=== PATIENT | female | born 1990 | race Caucasian/White ===

== ENCOUNTER 2017-10-15 07:39 | Inpatient (IN) ==
[2017-10-15] MEDS ORDERED: 0.9 % Sodium Chloride 1,000 ML IVC ONE (07:52)
--- NOTE | 2017-10-15 07:56 | Emergency Department Note ---
Disposition Clinical Impression: Diabetic keto-acidosis Qualifiers: Diabetes mellitus type: type 1 Diabetes mellitus complication detail: without coma Qualified Code(s): E10.10 - Type 1 diabetes mellitus with ketoacidosis without coma Disposition: Admitted As Inpatient Condition: Good Referrals: Candice Lambert DO [Primary Care Provider] - Forms: ED Satisfaction Letter, Work/School Release Time of Disposition: 09:24 General Adult HPI - General Chief complaint: ED General Medical Stated complaint: "First stage of Ketoacidosis" Time Seen by Provider: 10/15/17 07:45 Source: patient Mode of arrival: ambulatory Limitations: no limitations Nursing Notes Reviewed: Yes Vital Signs Reviewed: Yes - History of Present Illness HPI Narrative: Patient concern about hyperglycemia. She ran out of her Lantus several days ago. She states she has a prescription at the pharmacy which she has yet to refill. She complains of dry skin increased thirst, polyuria, fatigue. She has been in diabetic ketoacidosis twice previously and that is her current concern. She does note bilateral low back pain without urinary symptoms. She denies febrile symptoms Onset (ago): day(s) Pain Severity: moderate Pain Scale: 4 Consistency: constant Improves with: nothing Worsens with: nothing Associated symptoms: Reports: other Treatments Prior to Arrival: none - Related Data Previous Rx's Medication Instructions Recorded Guaifenesin [Mucinex] 1,200 mg PO BID #20 tab.er.12h 06/06/17 PredniSONE [Deltasone] 20 mg PO DAILY 4 Days tablet 06/06/17 Benzonatate [Tessalon] 100 mg PO TID PRN #15 capsule 07/15/17 Magic Mouthwash [Magic Mouthwash 5 ml PO QID PRN #240 ml 07/15/17 BLM] Azithromycin [Azithromycin 6-Tab 250 mg PO PER PKG DI #6 tab 07/24/17 Pack] Ketorolac [Toradol] 10 mg PO Q6HR PRN #20 tablet 07/24/17 predniSONE [Prednisone] 50 mg PO DAILY #5 tablet 07/24/17 Allergies Allergy/AdvReac Type Severity Reaction Status Date / Time No Known Allergies Allergy Verified 07/24/17 08:44 All systems ED: reviewed and negative except as stated. Constitutional: Reports: weakness Eyes: Reports: as per HPI ENT ED: Reports: as per HPI Cardiovascular: Reports: as per HPI Respiratory: Reports: as per HPI Gastrointestinal: Reports: as per HPI Genitourinary: Reports: as per HPI Musculoskeletal: Reports: back pain Integumentary: Reports: other (Dry skin) Neurological: Reports: as per HPI Psychiatric: Reports: as per HPI Endocrine: Reports: fatigue, polydipsia, polyuria Hematological/Lymphatic: Reports: as per HPI Allergic/Immunologic: Reports: as per HPI Past Medical History - Past Medical History Source: patient Medical history: Reports: asthma, diabetes, thyroid disease Psychiatric history: Reports: anxiety, depression, PTSD BILLING MANAGER history: Reports: polycystic ovary syndrome - Social History Smoking Status: Never smoker Smokeless Tobacco Status: No Alcohol use: Reports: none Drug use: Reports: none Physical Exam - General Limitations: no limitations General appearance: alert, in no apparent distress - Head Head exam: atraumatic - Eye Eye exam: Present: normal appearance - ENT ENT exam: normal exam - Neck Neck exam: Present: normal inspection, full ROM - Chest Chest inspection: Present: normal inspection, symmetric chest wall rise - Respiratory Respiratory exam: Present: normal lung sounds bilaterally - Cardiovascular Cardiovascular exam: Present: regular rate, normal rhythm, normal heart sounds - Rectal Exam Rectal exam: Present: deferred - Extremities Exam Extremities exam: Present: normal inspection - Neurological Exam Neurological exam: Present: alert, oriented X3, CN II-XII intact - Psychiatric Psychiatric exam: Present: normal affect, normal mood - Skin Skin exam: Present: warm, dry, intact Course Course Narrative: Patient presents with concerns for hyperglycemia due to being without her Lantus over the past several days. Workup to evaluate for diabetic ketoacidosis initiated. Initial bedside Accu-Chek greater than 400. IV fluids initiated - Reevaluation(s) Reevaluation #1: Patient needs criteria for DKA. IV insulin therapy initiated. I will request admission to the medicine service Vital Signs Temperature 98.6 F 10/15/17 07:40 Pulse Rate 91 10/15/17 07:40 Respiratory Rate 10/15/17 07:40 Blood Pressure 152/73 10/15/17 07:40 O2 Sat by Pulse Oximetry 96 10/15/17 07:40 Temperature 98.6 F 10/15/17 07:44 Pulse Rate 91 10/15/17 07:44 Respiratory Rate 22 10/15/17 07:44 Blood Pressure 152/73 10/15/17 07:44 O2 Sat by Pulse Oximetry 96 10/15/17 07:44 Oxygen Delivery Oxygen Delivery Room Air Medical Decision Making - Lab Data Lab results reviewed: Yes I reviewed the patient's lab results. Result diagrams: 10/15/17 08:05 10/15/17 08:48 Lab Results 10/15/17 10/15/17 10/15/17 Range/Units 07:56 07:56 08:05 WBC 12.1 H (4.3-11.1) K/mcL RBC 4.54 (3.82-4.97) M/mcL Hgb 14.5 (11.5-15.4) g/dL Hct 42.5 (35.3-44.9) % MCV 93.6 (83.0-100.0) fL MCH 31.9 (28.0-33.3) pg MCHC 34.1 (31.6-35.5) g/dL RDW 12.1 (11.5-14.5) % Plt Count 243 (140-400) K/mcL MPV 10.2 (9.4-12.4) fL Immature Gran % 0.8 (0-4) % Seg Neutrophils % 76.8 % Lymphocytes % 16.4 % Monocytes % 4.7 % Eosinophils % 0.7 % Basophils % 0.6 % Neutrophils # 9.3 H (1.6-8.9) K/mcL Lymphocytes # 2.0 (0.6-4.6) K/mcL Monocytes # 0.6 (0.0-1.3) K/mcL Eosinophils # 0.1 (0.0-0.6) K/mcL Basophils # 0.1 (0.0-0.2) K/mcL VBG pH (7.32-7.42) pH Units VBG pCO2 (41-51) mmHg VBG pO2 (25-50) mmHg VBG HCO3 (21-27) mEq/L Sodium (136-145) mEq/L Potassium (3.5-5.1) mEq/L Chloride (98-107) mEq/L Carbon Dioxide (23-29) mEq/L BUN (6-20) mg/dL Creatinine (0.60-1.20) mg/dL Est GFR ( Amer) (> 60) Est GFR (Non-Af Amer) (> 60) BUN/Creatinine Ratio (6-26) Glucose (70-105) mg/dL Calculated Osmolality (280-300) Calcium (8.6-10.3) mg/dL Total Bilirubin (0.3-1.0) mg/dL AST (13-39) Units/L ALT (7-52) Units/L Alkaline Phosphatase (34-104) Units/L Serum Total Protein (6.4-8.9) g/dL Albumin (3.5-5.7) g/dL Globulin (2.4-3.5) g/dL Albumin/Globulin Ratio (1.1-2.2) Beta-Hydroxybutyric Acd (0.02-0.27) mmol/L Urine Color Yellow (Yellow) Urine Clarity Clear (Clear) Urine pH 6.0 (5.0-8.0) pH Units Ur Specific [place] 1.027 H (1.010-1.025) Urine Protein Trace (Neg-Trace) mg/dL Urine Glucose (UA) >=1000 H (Normal) mg/dL Urine Ketones 80 H (Negative) mg/dL Urine Blood Negative (Negative) Urine Nitrite Negative (Negative) Urine Bilirubin Negative (Negative) Urine Urobilinogen Normal (Normal) mg/dL Ur Leukocyte Esterase Negative (Negative) Urine Microscopic RBC 0-3 (0-3) per hpf Urine Microscopic WBC 0-3 (0-3) per hpf Ur Squamous Epith Cells Many H (None-Few) per lpf Urine Bacteria None Seen (None-Few) per hpf Hyaline Casts None Seen (None-Few) per lpf Urine Test Negative (Negative) Specimen Rejected 10/15/17 10/15/17 10/15/17 Range/Units 08:05 08:05 08:21 WBC (4.3-11.1) K/mcL RBC (3.82-4.97) M/mcL Hgb (11.5-15.4) g/dL Hct (35.3-44.9) % MCV (83.0-100.0) fL MCH (28.0-33.3) pg MCHC (31.6-35.5) g/dL RDW (11.5-14.5) % Plt Count (140-400) K/mcL MPV (9.4-12.4) fL Immature Gran % (0-4) % Seg Neutrophils % % Lymphocytes % % Monocytes % % Eosinophils % % Basophils % % Neutrophils # (1.6-8.9) K/mcL Lymphocytes # (0.6-4.6) K/mcL Monocytes # (0.0-1.3) K/mcL Eosinophils # (0.0-0.6) K/mcL Basophils # (0.0-0.2) K/mcL VBG pH 7.29 L (7.32-7.42) pH Units VBG pCO2 36 L (41-51) mmHg VBG pO2 76 H (25-50) mmHg VBG HCO3 17 L (21-27) mEq/L Sodium (136-145) mEq/L Potassium (3.5-5.1) mEq/L Chloride (98-107) mEq/L Carbon Dioxide (23-29) mEq/L BUN (6-20) mg/dL Creatinine (0.60-1.20) mg/dL Est GFR ( Amer) (> 60) Est GFR (Non-Af Amer) (> 60) BUN/Creatinine Ratio (6-26) Glucose (70-105) mg/dL Calculated Osmolality (280-300) Calcium (8.6-10.3) mg/dL Total Bilirubin (0.3-1.0) mg/dL AST (13-39) Units/L ALT (7-52) Units/L Alkaline Phosphatase (34-104) Units/L Serum Total Protein (6.4-8.9) g/dL Albumin (3.5-5.7) g/dL Globulin (2.4-3.5) g/dL Albumin/Globulin Ratio (1.1-2.2) Beta-Hydroxybutyric Acd > 2.00 H (0.02-0.27) mmol/L Urine Color (Yellow) Urine Clarity (Clear) Urine pH (5.0-8.0) pH Units Ur Specific [place] (1.010-1.025) Urine Protein (Neg-Trace) mg/dL Urine Glucose (UA) (Normal) mg/dL Urine Ketones (Negative) mg/dL Urine Blood (Negative) Urine Nitrite (Negative) Urine Bilirubin (Negative) Urine Urobilinogen (Normal) mg/dL Ur Leukocyte Esterase (Negative) Urine Microscopic RBC (0-3) per hpf Urine Microscopic WBC (0-3) per hpf Ur Squamous Epith Cells (None-Few) per lpf Urine Bacteria (None-Few) per hpf Hyaline Casts (None-Few) per lpf Urine Test (Negative) Specimen Rejected Hemolyzed 10/15/17 Range/Units 08:48 WBC (4.3-11.1) K/mcL RBC (3.82-4.97) M/mcL Hgb (11.5-15.4) g/dL Hct (35.3-44.9) % MCV (83.0-100.0) fL MCH (28.0-33.3) pg MCHC (31.6-35.5) g/dL RDW (11.5-14.5) % Plt Count (140-400) K/mcL MPV (9.4-12.4) fL Immature Gran % (0-4) % Seg Neutrophils % % Lymphocytes % % Monocytes % % Eosinophils % % Basophils % % Neutrophils # (1.6-8.9) K/mcL Lymphocytes # (0.6-4.6) K/mcL Monocytes # (0.0-1.3) K/mcL Eosinophils # (0.0-0.6) K/mcL Basophils # (0.0-0.2) K/mcL VBG pH (7.32-7.42) pH Units VBG pCO2 (41-51) mmHg VBG pO2 (25-50) mmHg VBG HCO3 (21-27) mEq/L Sodium 135 L (136-145) mEq/L Potassium 5.0 (3.5-5.1) mEq/L Chloride 105 (98-107) mEq/L Carbon Dioxide 15 L (23-29) mEq/L BUN 19 (6-20) mg/dL Creatinine 0.78 (0.60-1.20) mg/dL Est GFR ( Amer) > 60 (> 60) Est GFR (Non-Af Amer) > 60 (> 60) BUN/Creatinine Ratio 24 (6-26) Glucose 508 H* (70-105) mg/dL Calculated Osmolality 305 H (280-300) Calcium 8.8 (8.6-10.3) mg/dL Total Bilirubin 0.4 (0.3-1.0) mg/dL AST 14 (13-39) Units/L ALT 21 (7-52) Units/L Alkaline Phosphatase 81 (34-104) Units/L Serum Total Protein 6.5 (6.4-8.9) g/dL Albumin 3.6 (3.5-5.7) g/dL Globulin 2.9 (2.4-3.5) g/dL Albumin/Globulin Ratio 1.2 (1.1-2.2) Beta-Hydroxybutyric Acd (0.02-0.27) mmol/L Urine Color (Yellow) Urine Clarity (Clear) Urine pH (5.0-8.0) pH Units Ur Specific [place] (1.010-1.025) Urine Protein (Neg-Trace) mg/dL Urine Glucose (UA) (Normal) mg/dL Urine Ketones (Negative) mg/dL Urine Blood (Negative) Urine Nitrite (Negative) Urine Bilirubin (Negative) Urine Urobilinogen (Normal) mg/dL Ur Leukocyte Esterase (Negative) Urine Microscopic RBC (0-3) per hpf Urine Microscopic WBC (0-3) per hpf Ur Squamous Epith Cells (None-Few) per lpf Urine Bacteria (None-Few) per hpf Hyaline Casts (None-Few) per lpf Urine Test (Negative) Specimen Rejected Critical Care Time Critical Care Time: Yes Total Critical Care Time: 30 Attestation: The high probability of a clinically significant, sudden or life threatening deterioration of the [] system(s) required my full and direct attention, intervention and personal management. The aggregate critical care time was [] minutes. This time is in addition to time spent performing reported procedures but includes the following: [] Data Review and interpretation [] Patient assessment and monitoring of vital signs [] Documentation [] Medication orders and management
[2017-10-15 08:24] LABS: VBG HCO3 17 mEq/L (21-27); VBG PCO2 36 mmHg (41-51); VBG PH 7.29 pH Units (7.32-7.42); VBG PO2 76 mmHg (25-50)
[2017-10-15 08:25] LABS: Bilirubin,Urine Negative (Negative); Blood,Urine Negative (Negative); Clarity,Urine Clear (Clear); Color,Urine Yellow (Yellow); Glucose,Urine (UA) >=1000 mg/dL (Normal); Ketones,Urine 80 mg/dL (Negative); Leukocyte Esterase,Urine Negative (Negative); Nitrite,Urine Negative (Negative); Protein,Urine Trace mg/dL (Neg-Trace); Specific Gravity,Urine 1.027 (1.010-1.025); Urobilinogen,Urine Normal (Normal)
[2017-10-15 08:28] LABS: Bacteria,Urine None Seen per hpf (None-Few); Hyaline Casts,Urine None Seen per lpf (None-Few); RBC,Urine 0-3 per hpf (0-3); Squamous Epithelial Cell,Urine Many per lpf (None-Few); WBC,Urine 0-3 per hpf (0-3)
[2017-10-15 08:35] LABS: Basophils # 0.1 K/mcL (0.0-0.2); Basophils % 0.6 %; Eosinophils # 0.1 K/mcL (0.0-0.6); Eosinophils % 0.7 %; Hematocrit 42.5 % (35.3-44.9); Hemoglobin 14.5 g/dL (11.5-15.4); Immature Granulocytes % 0.8 % (0-4); Lymphocytes % 16.4 %; Mean Corpuscular HGB Conc 34.1 g/dL (31.6-35.5); Mean Corpuscular Hemoglobin 31.9 pg (28.0-33.3); Mean Corpuscular Volume 93.6 fL (83.0-100.0); Mean Platelet Volume 10.2 fL (9.4-12.4); Monocytes # 0.6 K/mcL (0.0-1.3); Monocytes % 4.7 %; Neutrophils # 9.3 K/mcL (1.6-8.9); Platelet Count 243 K/mcL (140-400); Red Blood Count 4.54 M/mcL (3.82-4.97); Red Cell Distribution Width 12.1 % (11.5-14.5); Segmented Neutrophils % 76.8 %
[2017-10-15 09:21] LABS: Alanine Aminotransferase 21 Units/L (7-52); Albumin 3.6 g/dL (3.5-5.7); Albumin/Globulin Ratio 1.2 (1.1-2.2); Alkaline Phosphatase 81 Units/L (34-104); Aspartate Amino Transferase 14 Units/L (13-39); BUN/Creatinine Ratio 24 (6-26); Bilirubin,Total 0.4 mg/dL (0.3-1.0); Blood Urea Nitrogen 19 mg/dL (6-20); Calcium 8.8 mg/dL (8.6-10.3); Carbon Dioxide 15 mEq/L (23-29); Chloride 105 mEq/L (98-107); Globulin 2.9 g/dL (2.4-3.5); Glucose 508 mg/dL (70-105); Osmolality,Calculated 305 (280-300); Sodium 135 mEq/L (136-145); Total Protein 6.5 g/dL (6.4-8.9); eGFR For African Americans > 60 (> 60); eGFR For Non-African Americans > 60 (> 60)
[2017-10-15] MEDS ORDERED: *HR* Dextrose 50 % in Water (Syg) 50 ML SYRINGE IVP PRN ×3 (09:22→20:44)
[2017-10-15] MEDS ORDERED: Insulin Human Regular 100 UNIT in 0.9 % Sodium Chloride 100 ML IVC SCH ×3 (09:30→17:00)
[2017-10-15] MEDS ORDERED: Ondansetron 4 MG/2 ML VIAL IVP ONE (09:51)
[2017-10-15] MEDS ORDERED: SUMAtriptan succinate 25 MG TABLET PO PRN (11:24)
[2017-10-15] MEDS ORDERED: Insulin Regular, Human 100 UNIT/ML IV PRN (11:27)
[2017-10-15] MEDS ORDERED: D5% in 0.45% NACL 1,000 ML IVC PRN (11:27)
--- NOTE | 2017-10-15 11:44 | Internal Med History&Physical ---
<Katlin Silver R - Last Filed: 10/15/17 11:38> Date of Encounter: 10/15/17 Time of Encounter: 11:38 Internal Medicine - H&P: HPI Chief complaint: DKA Admitted From: Home Plans for Post Hospital Care: Home History of present illness: Ms. Ruelas is a 26 year old female who presents with high blood sugars, increased thirst, dry skin, poluira, fatique and nausea at home, since she lost her lantus insulin bottle 3 days ago, and was not able to get a refill. She has PMH of Type I DM and was diagnosed at age [age] years old. This will be the the third inpatient stay for her for DKA. The last hosptal stay was 3 years ago.In the ED the patient was found to be in DKA. The glucose was 508. She was started on a insulin drip and will be placed inpatient on step-down unit. Past Med Surg Social Fam HX - Past Medical History Medical history: asthma, diabetes, thyroid disease Psychiatric history: anxiety, depression, PTSD - Social History Smoking Status: Never smoker Smokeless Tobacco Status: No Alcohol use: none Drug use: none Internal Medicine - H&P: Meds Atorvastatin [Lipitor] 10 mg PO HS 10/15/17 [History] Cetirizine HCl [24Hour Allergy] 10 mg PO DAILY 10/15/17 [History] Escitalopram [Lexapro] 10 mg PO DAILY 10/15/17 [History] Fluticasone Propionate [Flovent Hfa] 1 puff IH DAILY 10/15/17 [History] Insulin Glargine [Lantus] 35 units SQ QAM 10/15/17 [History] Insulin Glargine [Lantus] 37 units SQ QPM 10/15/17 [History] Insulin Glulisine [Apidra] 0 - 30 units SQ TIDWM 10/15/17 [History] Levothyroxine Sodium [Levoxyl] 125 mcg PO QAM 10/15/17 [History] Lisinopril [Zestril] 5 mg PO DAILY 10/15/17 [History] Montelukast [Singulair] 10 mg PO DAILY 10/15/17 [History] Norgestimate-Ethinyl Estradiol [Sprintec 28 Day Tablet] 1 tab PO DAILY 10/15/17 [History] SUMAtriptan succinate [Imitrex] 25 mg PO DAILY PRN 10/15/17 [History] Topiramate [Topamax] 25 mg PO DAILY 10/15/17 [History] 3 Allergy/AdvReac Type Severity Reaction Status Date / Time No Known Allergies Allergy Verified 10/15/17 09:54 All Systems PM: A 10-system review of systems was performed and is negative for pertinent findings except as documented above in the HPI. - Constitutional Constitutional: fatigue, no chills, no fever(s), no night sweats - EENT Eyes: no change in vision, no discharge, no pain, no photophobia Ears: no ear discharge, no ear pain, no tinnitus Nose, mouth and throat: no dysphagia, no nasal discharge, no neck pain, no sore throat - Cardiovascular Cardiovascular ROS IM: no chest pain, no diaphoresis, no dyspnea, no lightheadedness, no palpitations, no syncope - Respiratory Respiratory: no cough, no dyspnea, no wheezing, no excessive phlegm production - Gastrointestinal Gastrointestinal: nausea, no abdominal pain, no diarrhea, no hematemesis, no hematochezia, no melena, no vomiting - Genitourinary Genitourinary: urinary frequency, no change in urinary stream, no dysuria, no flank pain, no hematuria - Musculoskeletal Musculoskeletal ROS IM: no numbness, no tingling - Integumentary Integumentary IM: no rash, no unusual bruising - Neurological Neurological ROS: no confusion, no convulsions, no focal weakness, no numbness, no tingling, no tremor(s) - Hematologic/Lymphatic Hematologic/Lymphatic: no easy bruising - Constitutional Vitals: Temp Pulse Resp BP Pulse Ox 98.6 F 94 20 112/50 98 10/15/17 07:44 10/15/17 10:33 10/15/17 10:33 10/15/17 10:33 10/15/17 10:33 General appearance: Present: A&O X 3, obese - Head Head exam: Present: atraumatic, normocephalic - Eye Eye exam: Present: PERRL, conjuntiva pink, sclera anicteric Pupils: Present: PERRL - Neck Neck exam general surgery: Present: supple, trachea midline. Absent: lymphadenopathy - Respiratory Respiratory exam: Present: CTAB. Absent: accessory muscle use, rales, rhonchi, wheezes - Cardiovascular Cardiovascular exam: Present: RRR, +S1, +S2. Absent: diastolic murmur, gallop, rubs, systolic murmur - GI/Abdominal GI/Abdominal exam: Present: normal bowel sounds, soft, no peritoneal signs. Absent: distended, tenderness - Extremities Exam Extremities exam: Present: warm, radial pulses palpable and symmetrical. Absent : calf tenderness, cyanotic, pedal edema - Neurological Exam Neurological exam: Present: CN II-XII intact, oriented X3, no focal deficits. Absent: pronater drift, facial droop, speech deficit - Skin Skin exam: Present: dry, intact Internal Med - H&P Results - Labs CBC & Chem 7: 10/15/17 08:05 10/15/17 08:48 Labs: Short CBC 10/15/17 Range/Units 08:05 WBC 12.1 H (4.3-11.1) K/mcL Hgb 14.5 (11.5-15.4) g/dL Hct 42.5 (35.3-44.9) % Plt Count 243 (140-400) K/mcL Neutrophils # 9.3 H (1.6-8.9) K/mcL BMP 10/15/17 08:48 Sodium 135 L Potassium 5.0 Chloride 105 Carbon Dioxide 15 L BUN 19 Creatinine 0.78 Glucose 508 H* Calcium 8.8 Liver Function 10/15/17 Range/Units 08:48 Total Bilirubin 0.4 (0.3-1.0) mg/dL AST 14 (13-39) Units/L ALT 21 (7-52) Units/L Alkaline Phosphatase 81 (34-104) Units/L Albumin 3.6 (3.5-5.7) g/dL Urine 10/15/17 Range/Units 07:56 Urine Color Yellow (Yellow) Urine Clarity Clear (Clear) Urine pH 6.0 (5.0-8.0) pH Units Ur Specific [place] 1.027 H (1.010-1.025) Urine Protein Trace (Neg-Trace) mg/dL Urine Glucose (UA) >=1000 H (Normal) mg/dL - ABG Interpretation ABG results: 10/15/17 08:21 VBG pH 7.29 L VBG pCO2 36 L VBG pO2 76 H VBG HCO3 17 L - Assessment and plan (1) Diabetic keto-acidosis Current Visit: Yes Status: Acute Assessment and plan: Will be placed on step down unit and continue insulin drip. BMP q 4hours, IVF, Accu checks q1h. Social service consult regarding insulin. Qualifiers: Diabetes mellitus type: type 1 Diabetes mellitus complication detail: without coma Qualified Code(s): E10.10 - Type 1 diabetes mellitus with ketoacidosis without coma (2) Thyroid disease Current Visit: Yes Status: Acute Assessment and plan: Continue home dosing of synthroid. - Time Spent With Patient Total time spent is greater than 50% in coordination of care (as documented) at patient's floor/unit and/or counseling patient: less than 15 minutes <July Miller - Last Filed: 10/15/17 12:04> Date of Encounter: 10/15/17 Internal Medicine - H&P: HPI History of present illness: Ms. Ruelas is a 26 year old female All Systems PM: A 10-system review of systems was performed and is negative for pertinent findings except as documented above in the HPI. - Constitutional Vitals: Temp Pulse Resp BP Pulse Ox 98.6 F 94 20 112/50 98 10/15/17 07:44 10/15/17 10:33 10/15/17 10:33 10/15/17 10:33 10/15/17 10:33 Internal Med - H&P Results - Labs CBC & Chem 7: 10/15/17 08:05 10/15/17 08:48 Labs: Short CBC 10/15/17 Range/Units 08:05 WBC 12.1 H (4.3-11.1) K/mcL Hgb 14.5 (11.5-15.4) g/dL Hct 42.5 (35.3-44.9) % Plt Count 243 (140-400) K/mcL Neutrophils # 9.3 H (1.6-8.9) K/mcL BMP 10/15/17 08:48 Sodium 135 L Potassium 5.0 Chloride 105 Carbon Dioxide 15 L BUN 19 Creatinine 0.78 Glucose 508 H* Calcium 8.8 Liver Function 10/15/17 Range/Units 08:48 Total Bilirubin 0.4 (0.3-1.0) mg/dL AST 14 (13-39) Units/L ALT 21 (7-52) Units/L Alkaline Phosphatase 81 (34-104) Units/L Albumin 3.6 (3.5-5.7) g/dL Urine 10/15/17 Range/Units 07:56 Urine Color Yellow (Yellow) Urine Clarity Clear (Clear) Urine pH 6.0 (5.0-8.0) pH Units Ur Specific [place] 1.027 H (1.010-1.025) Urine Protein Trace (Neg-Trace) mg/dL Urine Glucose (UA) >=1000 H (Normal) mg/dL - ABG Interpretation ABG results: 10/15/17 08:21 VBG pH 7.29 L VBG pCO2 36 L VBG pO2 76 H VBG HCO3 17 L - Attending Attestation Examined the patient. Reviewed the note and agree with the plan. Will continue DKA monitor. Will also consult social studies department chair to arrange the medication before discharge. Patient will follow her vegetable sorter and PCP on OPD basis. - Time Spent With Patient Total time spent is greater than 50% in coordination of care (as documented) at patient's floor/unit and/or counseling patient:
[2017-10-15] MEDS ORDERED: Ondansetron 4 MG/2 ML VIAL IVP PRN (11:53)
[2017-10-15 13:38] LABS: BUN/Creatinine Ratio 24 (6-26); Blood Urea Nitrogen 17 mg/dL (6-20); Calcium 9.1 mg/dL (8.6-10.3); Carbon Dioxide 16 mEq/L (23-29); Chloride 104 mEq/L (98-107); Glucose 360 mg/dL (70-105); Osmolality,Calculated 292 (280-300); Potassium 4.3 mEq/L (3.5-5.1); Sodium 133 mEq/L (136-145); eGFR For African Americans > 60 (> 60); eGFR For Non-African Americans > 60 (> 60)
[2017-10-15] MEDS: D5% in 0.45% NACL w KCl 20 MEQ/1,000 ML MLS IVC PRN ×2 (14:45→19:09)
[2017-10-15 17:09] LABS: BUN/Creatinine Ratio 21 (6-26); Blood Urea Nitrogen 13 mg/dL (6-20); Calcium 8.6 mg/dL (8.6-10.3); Carbon Dioxide 19 mEq/L (23-29); Chloride 109 mEq/L (98-107); Glucose 206 mg/dL (70-105); Osmolality,Calculated 286 (280-300); Potassium 4.3 mEq/L (3.5-5.1); Sodium 135 mEq/L (136-145); eGFR For African Americans > 60 (> 60); eGFR For Non-African Americans > 60 (> 60)
[2017-10-15] MEDS ORDERED: Insulin DETEMIR 100 UNIT/ML X5UNITS SQ SCH (18:00)
[2017-10-15] MEDS ORDERED: D5% in Water 1,000 ML IVC PRN (20:44)
[2017-10-15] MEDS ORDERED: Dextrose Gel 15 GM/37.5 ML TUBE PO PRN ×2 (20:44)
[2017-10-15] MEDS ORDERED: Insulin LISPRO 300 UNITS/3 ML VIAL SQ SCH (21:00)
[2017-10-16] MEDS ORDERED: GI Cocktail 40 ML EACH PO ONE (00:31)
[2017-10-16 04:55] LABS: VBG HCO3 20 mEq/L (21-27); VBG PCO2 31 mmHg (41-51); VBG PH 7.42 pH Units (7.32-7.42); VBG PO2 204 mmHg (25-50)
[2017-10-16 05:10] LABS: BUN/Creatinine Ratio 16 (6-26); Blood Urea Nitrogen 10 mg/dL (6-20); Calcium 8.5 mg/dL (8.6-10.3); Carbon Dioxide 21 mEq/L (23-29); Chloride 107 mEq/L (98-107); Glucose 305 mg/dL (70-105); Osmolality,Calculated 291 (280-300); Potassium 4.4 mEq/L (3.5-5.1); Sodium 135 mEq/L (136-145); eGFR For African Americans > 60 (> 60); eGFR For Non-African Americans > 60 (> 60)
[2017-10-16] MEDS ORDERED: Insulin LISPRO 300 UNITS/3 ML VIAL SQ SCH (08:00)
[2017-10-16] MEDS: Insulin LISPRO 300 UNITS/3 ML VIAL SQ SCH ×3 (08:18→16:41)
[2017-10-16] MEDS ORDERED: Insulin DETEMIR 100 UNIT/ML X5UNITS SQ SCH (09:00)
[2017-10-16] MEDS ORDERED: Loratadine 10 MG TABLET PO SCH (09:00)
[2017-10-16] MEDS ORDERED: NON-FORMULARY MEDICATION 1 EACH EACH (Norgestimate-Ethinyl Estradiol [Sprintec 28 Day Tabl PO SCH (09:00)
[2017-10-16] MEDS ORDERED: Topiramate 25 MG TABLET PO SCH (09:00)
[2017-10-16] MEDS ORDERED: Beclomethasone 80mcg MDI IH SCH (10:00)
[2017-10-16 16:28] VITALS: BP 136/89
--- NOTE | 2017-10-16 16:52 | Discharge Summary ---
- NOTES TO OUTPATIENT PROVIDER Notes to Outpatient Provider: DKA due to not having insulin; Date of Encounter: 10/16/17 Time of Encounter: 09:40 - Discharge Diagnosis (1) Diabetic keto-acidosis Priority: Primary Status: Acute Qualifiers: Diabetes mellitus type: type 1 Diabetes mellitus complication detail: without coma Qualified Code(s): E10.10 - Type 1 diabetes mellitus with ketoacidosis without coma (2) Hypothyroidism Priority: Secondary Status: Chronic Qualifiers: Hypothyroidism type: unspecified Qualified Code(s): E03.9 - Hypothyroidism , unspecified (3) Asthma Priority: Secondary Status: Chronic Qualifiers: Asthma severity: mild Asthma persistence: intermittent Asthma complication type: uncomplicated Qualified Code(s): J45.20 - Mild intermittent asthma, uncomplicated Hospital course: Ms. Ruelas is a 26 year old female with h/o Type 1 DM, who was admitted with DKA symptoms and signs. She was admitted to step down unit and started on IV insulin drip, and responded well, with improvement in blood sugars and metabolic acidosis and electrolytes. she tolerates oral diet and started on home regimen of insulin. She claims having some pharmacy issues with her insulin , which were cleared; her grandmother picked up her medicine and she has them available at home. She is medically stable for discharge; she does follow with PCP and Endocrinology and is well-aware of her disease process. Discharge discussed with: patient, nurse, case management - Time Spent with Patient Total time spent providing and/or coordinating discharge services: Greater than 30 minutes (40 min) - Discharge Medications Home Medications: Atorvastatin [Lipitor] 10 mg PO HS 10/15/17 [History] Cetirizine HCl [24Hour Allergy] 10 mg PO DAILY 10/15/17 [History] Escitalopram [Lexapro] 10 mg PO DAILY 10/15/17 [History] Fluticasone Propionate [Flovent Hfa] 1 puff IH DAILY 10/15/17 [History] Insulin Glargine [Lantus] 35 units SQ QAM 10/15/17 [History] Insulin Glargine [Lantus] 37 units SQ QPM 10/15/17 [History] Insulin Glulisine [Apidra] 0 - 30 units SQ TIDWM 10/15/17 [History] Levothyroxine Sodium [Levoxyl] 125 mcg PO QAM 10/15/17 [History] Lisinopril [Zestril] 5 mg PO DAILY 10/15/17 [History] Montelukast [Singulair] 10 mg PO DAILY 10/15/17 [History] Norgestimate-Ethinyl Estradiol [Sprintec 28 Day Tablet] 1 tab PO DAILY 10/15/17 [History] SUMAtriptan succinate [Imitrex] 25 mg PO DAILY PRN 10/15/17 [History] Topiramate [Topamax] 25 mg PO DAILY 10/15/17 [History] Allergies/Adverse Reactions: 3 Allergy/AdvReac Type Severity Reaction Status Date / Time No Known Allergies Allergy Verified 10/15/17 09:54 Date of admission: 10/15/17 18:09 Primary care physician: Candice Lambert DO Discharging clinician: Maria Luisa Fay Anticipated date of discharge: 10/16/17 - Constitutional Vitals: Temp Pulse Resp BP Pulse Ox 98.4 F 88 18 136/89 98 10/16/17 16:24 10/16/17 16:24 10/16/17 16:24 10/16/17 16:24 10/16/17 16:24 General appearance: Present: A&O X 3, morbidly obese, answers questions appropriately - Respiratory Respiratory exam: Present: CTAB. Absent: accessory muscle use, rales, rhonchi, wheezes - Cardiovascular Cardiovascular exam: Present: RRR, +S1, +S2. Absent: diastolic murmur, gallop, rubs, systolic murmur - Patient Status Disposition: Home, Self-Care Condition: Good Functional capacity at discharge: independent ambulation Overall status at discharge: patient is back to baseline - Discharge Instructions Instructions: Asthma (DC), Hypothyroidism (DC), Diabetes Mellitus Type 2 in Adults (DC) Follow Up With: Abilio Sexton DO [Resident] - 10/22/17 10:00 am - Diet and Activity Activity: resume usual activities as tolerated Diet: diabetic diet, low fat, low cholesterol - VTE Documentation of Mechanical Device: Intermittent pneumatic compression device
== END 2017-10-16 17:33 | disposition home or self-care (01) | DRG 420 ==
LOC: EMEROO 07:39 → 2NNU 07:39
PROVIDERS: ADMIT General Practice; ATTEND General Practice